=== PATIENT | female | born 1995 | race Caucasian/White ===

== ENCOUNTER 2017-02-13 19:09 | Emergency (ER) | payer OTHER ==
[2017-02-13 19:48] VITALS: BMI 28.2
--- NOTE | 2017-02-13 20:02 | PDOC ---
History of Present Illness - History of Present Illness Initial Comments: 02/13/17 20:30 The patient is a 22 year old female, with a significant past medical history of ovarian cysts, who presents to the emergency department with lower left quadrant pain for 3 days. Patient states that she had a right sided ovarian cyst 1 year ago and she began experiencing the same kind of pain in her LLQ 3 days ago. She states the pain is intermittent and has progressively worsened. Patient states she has been taking Motrin, using heating pads, and having her boyfriend massage her for pain relief. She states she has also had diarrhea for 3 days. She states she has felt faint and light-headed 2 & 3 days ago. LMP 01/28/17. She currently has an IUD. She denies recent fevers, chills, headache or dizziness. She denies recent nausea, vomit, or constipation. She denies recent dysuria, frequency, urgency or hematuria. She denies recent chest pain or shortness of breath. Allergies: NKA Past surgical history: 11/23 Social history: Nonsmoker. Social EtOH use. Denies recreational drug use. 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: [facility] <Nereyda Morgan - Last Filed: 02/13/17 21:01> <Laverne Shen - Last Filed: 02/14/17 02:01> - General Chief Complaint: Pain Stated Complaint: ABDOMINAL PAIN Time Seen by Provider: 02/13/17 20:01 Past History <Nereyda Morgan - Last Filed: 02/13/17 21:01> - Suicide/Smoking/Psychosocial Hx Smoking Status: No Smoking History: Never smoked Number of Cigarettes Smoked Daily: 0 Hx Alcohol Use: No Drug/Substance Use Hx: No Substance Use Type: None <Laverne Shen - Last Filed: 02/14/17 02:01> - Past Medical History Allergies/Adverse Reactions: Allergies Allergy/AdvReac Type Severity Reaction Status Date / Time No Known Allergies Allergy Verified 02/28/16 20:53 Home Medications: Ambulatory Orders NK [No Known Home Medication] 02/28/16 Review of Systems - Review of Systems Comments:: 02/13/17 20:38 CONSTITUTIONAL: Absent: fever, no chills, no fatigue EYES: Absent: visual changes ENT: Absent: ear pain, no sore throat CARDIOVASCULAR: Absent: chest pain, no palpitations RESPIRATORY: Absent: cough, no SOB GI: Present: LLQ pain, diarrhea Absent: no nausea, no vomiting, no constipation. GENITOURINARY: Absent: dysuria, no frequency, no hematuria MUSCULOSKELETAL: Absent: back pain, no arthralgia, no myalgia SKIN: Absent: rash NEURO: Absent: headache Present: lightheaded <Nereyda Morgan - Last Filed: 02/13/17 21:01> *Physical Exam - Vital Signs Last Vital Signs Temp Pulse Resp BP Pulse Ox 98.7 F 77 18 130/75 100 02/13/17 19:42 02/13/17 19:42 02/13/17 19:42 02/13/17 19:42 02/13/17 19:42 - Physical Exam Comments: 02/13/17 20:40 GENERAL: Well-appearing, well-nourished. No apparent distress. HEENT: Normocephalic, atraumatic. PERRL, EOM intact. CARDIOVASCULAR: Normal S1, S2. Regular rate and rhythm. PULMONARY: Clear to auscultation bilaterally. ABDOMEN: Tenderness to palpation above left hip to to lower left quadrant radiates slightly to flank.Soft, non-distended. EXTREMITIES: Normal ROM in all four extremities. No gross deformities. SKIN: Warm, dry. No rash NEUROLOGICAL: No focal neurological deficits. <Nereyda Morgan - Last Filed: 02/13/17 21:01> - Vital Signs Last Vital Signs Temp Pulse Resp BP Pulse Ox 98.7 F 77 18 130/75 100 02/13/17 19:42 02/13/17 19:42 02/13/17 19:42 02/13/17 19:42 02/13/17 19:42 <Laverne Shen - Last Filed: 02/14/17 02:01> ED Treatment Course - LABORATORY CBC & Chemistry Diagram: 02/13/17 20:39 02/13/17 20:39 <Nereyda Morgan - Last Filed: 02/13/17 21:01> - LABORATORY CBC & Chemistry Diagram: 02/13/17 20:39 02/13/17 20:39 <Laverne Shen - Last Filed: 02/14/17 02:01> *DC/Admit/Observation/Transfer - Attestations Scribe Attestion: 02/13/17 20:41 Documentation prepared by Nereyda Morgan, acting as medical or surgical instrument maker for Laverne Shen MD. <Nereyda Morgan - Last Filed: 02/13/17 21:01> <Laverne Shen - Last Filed: 02/14/17 02:01> Diagnosis at time of Disposition: Left sided abdominal pain - Discharge Dispostion Disposition: HOME Condition at time of disposition: Stable - Patient Instructions Printed Discharge Instructions: DI for Abdominal Pain-Adult Additional Instructions: please followup with your physician
[2017-02-13 20:45] LABS: HEMATOCRIT 38.6 % (32.4-45.2); HEMOGLOBIN 13.1 GM/dL (10.7-15.3); LYMPH % 29.3 % (8-40); MCH 30.7 pg (25.7-33.7); MCHC 34.1 g/dl (32.0-36.0); MEAN CELL VOLUME 90.2 fl (80-96); MEAN PLT VOLUME 9.8 fl (7.5-11.1); MONO % 5.2 % (3.8-10.2); NEUT % 62.5 % (42.8-82.8); PLATELET COUNT 209 K/MM3 (134-434); RBC 4.28 M/mm3 (3.60-5.2); RDW 12.4 % (11.6-15.6); WHITE BLOOD COUNT 11.8 K/mm3 (4.0-10.0)
[2017-02-13 20:50] LABS: URINE APPEARANCE CLEAR; URINE BILIRUBIN NEGATIVE (NEGATIVE); URINE BLOOD NEGATIVE (NEGATIVE); URINE COLOR LTYELLOW; URINE GLUCOSE (UA) NEGATIVE (NEGATIVE); URINE KETONE TRACE (NEGATIVE); URINE LEUK ESTERASE NEGATIVE (NEGATIVE); URINE NITRITE NEGATIVE (NEGATIVE); URINE PROTEIN NEGATIVE (NEGATIVE); URINE UROBILINOGEN NEGATIVE mg/dL (0.2-1.0)
[2017-02-13 21:16] LABS: ALBUMIN 3.5 g/dl (3.4-5.0); ALK PHOS 67 U/L (45-117); ANION GAP 9 (8-16); BILIRUBIN,TOTAL 0.2 mg/dL (0.2-1.0); BLOOD UREA NITROGEN 13 mg/dL (7-18); CALCIUM 9.2 mg/dL (8.5-10.1); CHLORIDE 104 mmol/L (98-107); CO2 25 mmol/L (21-32); CREATININE 0.5 mg/dL (0.55-1.02); GLUCOSE,RANDOM 98 mg/dL (74-106); SGPT/ALT 23 U/L (12-78); SODIUM 138 mmol/L (136-145); TOT PROT 7.4 g/dl (6.4-8.2)
[2017-02-13 21:20] LABS: POTASSIUM 4.9 mmol/L (3.5-5.1)
[2017-02-13 21:21] LABS: SGOT/AST 20 U/L (15-37)
[2017-02-13 23:01] VITALS: BP 122/70; PULSE 70; TEMP 98.1
== END 2017-02-14 02:11 | disposition home or self-care (01) ==
LOC: JER 19:09
DX: R10.32 Left lower quadrant pain (principal)
CPT/HCPCS: 36415; 74176-TC; 76830-TC; 76856-TC; 80053; 81003; 84703; 85025; 99283-25

== ENCOUNTER 2018-08-24 15:02 | Emergency (ER) | payer OTHER ==
--- NOTE | 2018-08-24 15:09 | PDOC ---
Rapid Medical Evaluation Chief Complaint: Cold Symptoms Time Seen by Provider: 08/24/18 15:07 Medical Evaluation: Allergies Allergy/AdvReac Type Severity Reaction Status Date / Time No Known Allergies Allergy Verified 02/28/16 20:53 08/24/18 15:07 I have performed a brief in-person evaluation of this patient. The patient presents with a chief complaint of: cough/ fevers/ body aches x 3 days, temp 99. Pertinent physical exam findings: pale , no cough I have ordered the following: nothing The patient will proceed to the ED for further evaluation.
[2018-08-24 15:10] VITALS: BP 113/70; PULSE 81; TEMP 98.4; BMI 31.3
--- NOTE | 2018-08-24 15:13 | PDOC ---
History of Present Illness - General Chief Complaint: Cold Symptoms Stated Complaint: LIGHT HEADED/ FEVER/ BODYACHES Time Seen by Provider: 08/24/18 15:07 History Source: Patient - History of Present Illness Initial Comments: 08/24/18 15:43 Chief complaint: Cough and body aches Patient is a healthy 23-year-old female, some history of seasonal ALLERGIES who states 3 days ago she developed coughing, sneezing, nasal congestion which then became body aches. Patient feels that she might of been running a fever. No fever today. Patient now feels that breathing is now tight. Patient has Angy IUD. No recent travel or family history of PE, DVT, blood clots. No leg pain or swelling. GENERAL/CONSTITUTIONAL: No fever, weakness. dizziness HEAD, EYES, EARS, NOSE AND THROAT: No change in vision. No ear pain or discharge. No sore throat. CARDIOVASCULAR: No chest pain RESPIRATORY: No shortness of breath or cough GASTROINTESTINAL: No pain, nausea, vomiting, diarrhea or constipation GENITOURINARY: No dysuria MUSCULOSKELETAL: No neck or back pain SKIN: No rash NEUROLOGIC: No headache, vertigo, loss of consciousness, or loss of sensation. GENERAL: The patient is awake, alert, and fully oriented, in no acute distress. HEAD: Normal with no signs of trauma. EYES: Pupils equal, round and reactive to light, sclera anicteric, conjunctiva clear. ENT: pharynx: no erythema, no exudate, uvula midline NECK: supple CHEST: clear, nontender, rr, patient speaking in full sentences ABD: soft, nontender BACK: no tenderness or signs of injury EXTREMITIES: Normal range of motion, no edema. NEUROLOGICAL: Normal speech, normal gait. SKIN: Warm, Dry Past History - Past Medical History Allergies/Adverse Reactions: Allergies Allergy/AdvReac Type Severity Reaction Status Date / Time No Known Allergies Allergy Verified 08/24/18 15:09 Home Medications: Ambulatory Orders Albuterol Sulfate [Albuterol Sulfate Hfa] 8.5 gm IH Q4H PRN #1 [id number] COPD: No - Suicide/Smoking/Psychosocial Hx Smoking Status: No Smoking History: Never smoked Number of Cigarettes Smoked Daily: 0 Information on smoking cessation initiated: No Hx Alcohol Use: No Drug/Substance Use Hx: No Substance Use Type: None *Physical Exam - Vital Signs Last Vital Signs Temp Pulse Resp BP Pulse Ox 98.4 F 81 18 113/70 100 08/24/18 15:08 08/24/18 15:08 08/24/18 15:08 08/24/18 15:08 08/24/18 15:08 Medical Decision Making - Medical Decision Making 08/24/18 15:49 Patient is a healthy 23-year-old female, some history of seasonal ALLERGIES who states 3 days ago she developed coughing, sneezing, nasal congestion which then became body aches. Patient feels that she might of been running a fever. No fever today. Patient now feels that breathing is now tight. Patient has Angy IUD. No recent travel or family history of PE, DVT, blood clots. No leg pain or swelling. Not tachycardic or hypoxic, her IUD is progesterone only. Patient is perc negative and symptoms started with coughing and runny nose which is more likely reactive airway given the clinical scenario and her history of seasonal ALLERGIES. Patient will be given a treatment of DuoNeb and get a chest x-ray and reassessment 08/24/18 16:55 pt feels better after treatment, chest x-ray shows no acute pathology or infiltrate. Patient will be prescribed albuterol inhaler and discharged to follow up with her primary care doctor 08/24/18 16:56 *DC/Admit/Observation/Transfer Diagnosis at time of Disposition: Reactive airway disease Qualifiers: Asthma severity: mild Asthma persistence: unspecified Qualified Code(s): J45.909 - Unspecified asthma, uncomplicated - Prescriptions Prescriptions: Albuterol Sulfate [Albuterol Sulfate Hfa] 8.5 gm IH Q4H PRN #1 [email or web address] PRN Reason: Dyspnea - Referrals Referrals: Patito Pardo MD [Primary Care Provider] - - Patient Instructions Printed Discharge Instructions: DI for Reactive Airway Disease-Adult Additional Instructions: Drink 2-3 L of water daily Inhaler, 2 puffs every 4 hours as needed for tightness or cough Take Tylenol 650 mg every 4 hours or Motrin 600 mg every 6 hours for fever and pain Return to the nearest ER if short of breath, unable to swallow or feeling sicker Followup with your doctor in one to 2 days - Post Discharge Activity
[2018-08-24] MEDS ORDERED: ALBUTEROL SO4 2.5/IPRATROPIUM 0.5 INH SOL 3 ML VIAL.NEB. NEB ONE ×2 (15:39→15:49)
== END 2018-08-24 17:05 | disposition home or self-care (01) ==
LOC: JERFT 15:02
PROC: 3E0F7GC Introduction of Other Therapeutic Substance into Respiratory Tract, Via Natural or Artificial Opening (ICD-10-PCS; principal; 2018-08-24)
DX: J45.909 Unspecified asthma, uncomplicated (principal)
CPT/HCPCS: 71046-TC-FY; 84703; 99281-25

== ENCOUNTER 2021-09-06 22:10 | Emergency (ER) | payer OTHER ==
[2021-09-06 22:32] VITALS: BP 114/83; PULSE 86; RESP 16; TEMP 99.3; BMI 30.9
[2021-09-06] MEDS ORDERED: AZITHROMYCIN 500 MG TABLET PO ONE (22:49)
[2021-09-06] MEDS ORDERED: AZITHROMYCIN 500 MG TABLET ONE (22:53)
== END 2021-09-06 23:11 | disposition home or self-care (01) ==
LOC: FER 22:10
DX: J02.9 Acute pharyngitis, unspecified (principal)
CPT/HCPCS: 87651; 99283-25